=== PATIENT | female | born 1955 | race African-American/Black ===

== ENCOUNTER 2019-11-25 11:33 | Inpatient (IN) | payer OTHER ==
[~2019-11-25] VITALS: Ht 167.6 cm; Wt 86.2 kg
[~2019-11-25 11:33] MED LIST: AMBIEN PO; AMLODIPINE5 MG PO; ANTIVERT25 MG OR; B-121000 MC1 PO; BAYER ASA325 MG OR; BAYER LOW81 MG OR; CENTRUM ULTRA WOMENS PO; CIPRO500 MG OR; CIPRO500 MG PO; CRESTOR20 MG PO; HYDROCHLORO25 MG/TAB PO; HYDROCHLOROT12.5 MG OR; LIDOCAINE PATCH TD; MECLIZINE25 MG OR; METFORMIN500 M2 PO; NORVASC OR; OTC SLEEP AIDE PO; PLAVIX75 MG OR; PRAVACHOL40 MG PO; TENORMIN100 MG PO; TENORMIN50 MG OR; VANCOMYCIN HCL1 GM IV; VASOTEC5 MG PO; ZOCOR40 MG OR
[2019-11-25] MEDS ORDERED: AMBIEN5 MG PO (13:33)
[2019-11-25] MEDS ORDERED: ASPIRIN81 MG PO (13:35)
[2019-11-25] MEDS ORDERED: GABAPENTIN100 MG PO (13:36)
[2019-11-25] MEDS ORDERED: PROTONIX40 M2 PO (13:37)
[2019-11-25] MEDS ORDERED: SUPER B COM2 PO (13:38)
[2019-11-25] MEDS ORDERED: TIZANIDINE HCL2 MG PO (13:38)
[2019-11-25] MEDS ORDERED: IRON27 MG PO (13:38)
[2019-11-25] MEDS ORDERED: TYLENOL500 MG PO (13:40)
[2019-12-02] VITALS (7 sets, daily range): BP systolic 105–135; BP diastolic 46–59
--- NOTE | 2019-12-02 15:30 | NUR ---
PT ARRIVED TO UNIT VIA BED WITH OR STAFF; ALERT AND ORIENTED AND IN STABLE CONDITION. BEDSIDE REPORT RECEIVED. BP WNL BRADYCARDIC HR 47-50; SLIGHTLY DROWSY. C/O PAIN 4/10 TO RIGHT KNEE; SURGICAL DRESSING ELIGIO WRAP CDI; ELEVATED ON PILLOW AND ICE APPLIED. NORMAL SALINE INFUSING; IV SITE APPEARS HEALTHY. NEW BAG OF LR NOW INFUSING AT 100 ML/HR PER ORDER. RESPIRATIONS EVEN AND UNLABORED ON OXYGEN 2L VIA NC. ORIENTED TO ROOM AND CALL LIGHT SYSTEM. CALL LIGHT WITHIN REACH.
--- NOTE | 2019-12-02 16:14 | NUR ---
FAMILY MEMBER AT BEDSIDE. SCD TO LLE; IS AT BEDSIDE.
--- NOTE | 2019-12-02 16:21 | NUR ---
GODFREY,ANRP AT BEDSIDE DISCUSSING POC WITH PT
--- NOTE | 2019-12-02 20:52 | NUR ---
ASSESSMENT COMPLETED AND PT ASSISTED IN REPOSITIONING RLE FOR COMFORT AND PROPER KNEE P.OP POSITIONING. PT MEDICATED WITH IV ANTIBIOTIC THERAPY ORDERS PROVIDE. PT REPORTS PAIN LEVEL 1/10 ON PAIN SCALE AT THIS TIME. PT ENCOURAGED TO CALL IF PAIN STARTS TO INCREASE AND NOT TO WAIT TOO LONG, EDUCATED ON MAINTAINING PAIN CONTROL. PT VERBALIZED UNDERSTANDING. IS DEMONSTRATED BY PT AT THIS TIME @1500 PER BREATH. ELIGIO TO R.KNEE CDI. SCD PLACED TO LLE.
--- NOTE | 2019-12-02 22:30 | NUR ---
PT MEDICATED FOR PAIN AND WITH SLEEP AIDE PER REQUEST ORDERS PROVIDE. ASSISTED PT WITH FRESH ICE WATER, DENIES OTHER NEEDS. PT IS REPOSITIONING AND MOVING WELL IN THE BED AND ASKING ABOUT POSITIONS THAT ARE SAFE. PT EDUCATED ON MOVEMENT AND POSITIONS FOR THE KNEE. PT EDUCATED ON ICING ALSO, VERBALIZED UNDERSTANDING.
--- NOTE | 2019-12-03 02:15 | NUR ---
PT AWAKE, BUT WITH LIGHTS OUT. DENIES BEING ABLE TO SLEEP, DENIES ANY COMFORT MEASURES AT THIS TIME. DENIES NEED FOR PAIN MEDICATION NOW. REPORTS MILD TWINGES WHEN SHE MOVES, OTHER REINA COMFORTABLE. FAN PLACED FOR SOUND COMFORT FOR PT PRIOR BY PRINT TRAFFIC MANAGER TO ASSIST IN SLEEPING, PT EARLIER MEDICATED WITH SLEEP AIDE. PT STATES THAT HER "MIND IS WORRIED ABOUT THE STOOL SOFTENER YOU GAVE ME EALIER." I EXPLAINED TO HER THAT IT IS NOT A LAXATIVE AND WOULD NOT HAVE QUICK AFFECTS, IT IS ONLY MILD TO COUNTERACT PAIN MEDICATIONS AND SEDENTARY MOVEMENT, SHE VERBALIZED UNDERSTANDING. DENIES ANY OTHER NEEDS, BUT ENCOURAGED HER TO CALL IF NEEDS ARISE.
[2019-12-03 03:51] VITALS: BP 109/58
--- NOTE | 2019-12-03 05:59 | NUR ---
PT MEDICATED FOR PAIN 6/10 ON PAIN SCALE. PT WAS JUST ASSISTED UP TO BS BY OFFICE MANAGER RECEPTIONIST AND IS BACK IN BED NOW. PT TOLERATED WELL.
[2019-12-03 06:06] LABS: HEMATOCRIT 30.5 % (37.0-47.0); HEMOGLOBIN 9.5 g/dl (12.0-16.0); MEAN CORPUSCULAR HGB 26.5 pG CALC (26.0-32.0); MEAN CORPUSCULAR HGB CONC 31.1 g/dL CAL (32.0-36.0); RED BLOOD COUNT 3.59 mill/uL (4.20-5.60); RED CELL DISTRI WIDTH 14.6 % (11.5-15.5)
[2019-12-03 06:25] LABS: BUN 17 mg/dL (8-23); BUN/CREATININE RATIO 23 (12-20 (CALC)); CHLORIDE 105 mmol/l (95-108); CREATININE 0.7 mg/dL (0.5-1.0); GFR > 60 ML/MIN (>=60 (CALC)); GFR FOR AFR.AMER. > 60 ML/MIN (>=60 (CALC)); MAGNESIUM 1.8 mg/dL (1.6-2.3); POTASSIUM 4.7 mmol/l (3.5-5.1); SODIUM 134 mmol/l (137-146)
[2019-12-03 06:27] LABS: ANION GAP 12 (6-22 (CALC)); CARBON DIOXIDE 22 mmol/l (22-30)
[2019-12-03 07:33] VITALS: BP 108/51
--- NOTE | 2019-12-03 07:40 | NUR ---
PT note Patient attempted for eval on 12/01. Her BP was 80/40 and she is postop. We will defer eval to 12/03/19
--- NOTE | 2019-12-03 10:56 | NUR ---
PT AWAKE, ALERT, ORIENTED X 3. LUNGS CLEAR, RA. PT WITH RIGHT KNEE SURGERY YESTERDAY IS NOW OOB IN CHAIR WITH ASSIST FROM PHYSICAL THERAPIST. PT PROVIDED PAIN MED EARLIER, DOES NOT SEEM TO BE IN SIGNIFICANT DISTRESS. ELIGIO WRAP TO RIGHT KNEE WNL, MINIMAL SWELLING TO RLE.
--- NOTE | 2019-12-03 12:47 | NUR ---
PT OOB INTO CHAIR THIS AM WITH PHYSICAL THERAPIST. PT MEDICATED WITH ZOFRAN PER NAUSEATED. NO ACUTE DISTRESS NOTED.
--- NOTE | 2019-12-03 14:00 | NUR ---
PM TX- PT PERFORMED BED MOB AND TRANSFERS INDEPENDENTLY WITH SBA FROM THERAPIST TO ENSURE SAFETY. SHE THEN AMBULATED IN THE HALLWAY X 60 FT X 2 WITH RW, CGA AND VERBAL CUES FOR PROPER GAIT. PT DEMONSTRATED CORRECT GAIT PATTERN W/ EQUAL STEP LENGTHS. PT DID NOT REPORT ANY EXACERBATION OF PAIN DURING THE TX. NO ADVERSE RECTIONS NOTED OR REPORTED AT THE END OF TX. SHE RETURNED TO HER BED IN HOOK LYING POSITION, CALL PAGAN WITHIN REACH. AMPA: 16 POINTS
[2019-12-03 15:15] VITALS: BP 110/54
--- NOTE | 2019-12-03 17:56 | NUR ---
PT AMBULATED IN HALLWAY WITH PHYSICAL THERAPY, TOLERATED WELL.
[2019-12-03 19:00] VITALS: BP 116/50
--- NOTE | 2019-12-03 20:02 | NUR ---
ASSESSMENT AND VITALS COMPLETED AT THIS TIME. RESPIRATIONS ARE EVEN AND UNLABORED, NO SIGNS OF DISTRESS, O2 SAT 99% ON RA. HEART RHYTHM IS NORMAL BOWEL SOUNDS ARE ACTIVE IN ALL QUADRANTS, LAST REPORTED BM 12/01/19. RADIAL AND PEDAL PULSES ARE STRONG WITH NORMAL CAPILLARY REFILL. SKIN IS INTACT. PT IS USING THE BSC WITH 1 ASSIST. PT DENIES ANY PAIN OR ADDITIONAL NEEDS AT THIS TIME. ALL SAFETY PRECAUTIONS ARE IN PLACE WITH CALL LIGHT IN REACH. WILL CONTINUE TO MONITOR.
[2019-12-04 00:01] VITALS: BP 119/46
--- NOTE | 2019-12-04 00:02 | NUR ---
PT LAYING IN BED WITH EYES CLOSED, APPEARS TO BE SLEEPING, APPEARS COMFORTABLE AND IN NO DISTRESS. RESPIRATIONS REGULAR AND UNLABORED. ITEMS REMAIN WITHIN REACH, CALL PAGAN REMAINS WITHIN REACH. BED REMAINS LOCKED AND IN LOW POSITION WITH BEDRAILS UP X2. WILL CONTINUE TO MONITOR.
--- NOTE | 2019-12-04 04:02 | NUR ---
PT RESTING IN BED, NO SIGNS OF DISTRESS NOTED, RESP EVEN AND UNLABORED. PT VOICES NO NEEDS OR COMPLAINTS AT THIS TIME. CALL LIGHT IN REACH. WILL CONTINUE TO MONITOR.
[2019-12-04 04:40] VITALS: BP 113/44
--- NOTE | 2019-12-04 07:20 | NUR ---
REPORT RECEIVED FROM MICHAEL SUN. PT RESTING IN BED SUPINE WITH EYES CLOSED AND EYE COVER ON FOR SLEEP; AWAKENS TO VERBAL STIMULI. C/O 4/10 RIGHT KNEE PAIN. RESPIRATIONS EVEN AND UNLABORED ON ROOM AIR. IV SITE APPEARS HEALTHY AND FLUSEHS. ELIGIO WRAP DRESSING TO RIGHT KNEE REMOVED PER POST OP ORDERS; SURGICAL INCISION WELL APPROXIMATED; WARMTH AND SWELLING TO SITE; EXPLAINED TO PT NORMAL SIGNS OF HEALING. PLAN OF CARE REVIEWED. PT ENCOURAGED TO VERBALIZE CONCERNS. STATES UNDERSTANDING. SAFETY MEASURES IN PLACE. CALL LIGHT WITHIN REACH.
[2019-12-04 07:37] VITALS: BP 105/58
--- NOTE | 2019-12-04 09:00 | NUR ---
DR. MCINTOSH AT BEDSIDE. PT REQUESTING PAIN MEDICATION.
[2019-12-04 09:07] LABS: HEMATOCRIT 29.8 % (37.0-47.0); HEMOGLOBIN 9.1 g/dl (12.0-16.0)
--- NOTE | 2019-12-04 09:25 | NUR ---
AMBULATING TO BATHROOM WITH PHYSICAL THERAPY.
--- NOTE | 2019-12-04 10:04 | NUR ---
AM TX- PT WAS SEEN RESTING HOOK LYING IN THE BED. SHE ASSUMED SITTING FROM SUPINE WITH MOD. INDEP. PT REPORTS FEELING NAUSEATED AND REQUESTED TO GO TO THE TOILET. SHE STOOD UP USING BOTH HANDS TO PUSH SELF UP FROM BED, THERAPIST OFFERED MIN A WITH GAIT BELT. SHE THEN AMBULATED FROM BED TO TOILET WITH RW AND CGA. PT WAS REMINDED ON PROPER GAIT USING A WALKER. PT RETURNED TO BED AFTERWARDS, REQUESTED TO DO GAIT TRAINING IN THE HALLWAY THIS AFTERNOON SHE WAS NOT FEELING WELL. LEFT PT COMFORTABLY LYING IN BED WITH CALL PAGAN WITHIN REACH. AMPAC: 15 POINTS
--- NOTE | 2019-12-04 10:09 | NUR ---
2 PERCOCET GIVEN WITH AM MEDS AFTER THERAPY WITH GOOD EFFECT.
--- NOTE | 2019-12-04 13:41 | NUR ---
ZOFRAN AND GINGERALE GIVEN FOR NAUSEA. 1 PERCOCET ALSO GIVEN FOR 5/10 RIGHT KNEE PAIN. SINGH AT BEDSIDE.
[2019-12-04 15:00] VITALS: BP 98/54
--- NOTE | 2019-12-04 15:20 | NUR ---
MIRALAX GIVEN FOR NO BOWEL MOVEMENT X 3 DAYS. PT AMBULATING IN HALLWAYS WITH WALKER AND PHYSICAL THERAPY.
--- NOTE | 2019-12-04 17:17 | NUR ---
PM TX- PT AMBULATED IN THE HALLWAY WITH RW AND SBA X 80 FT X 2 WITH GOOD GAIT PATTERN AND BETTER PACING. AFTERWARDS, PT PERFORMED THEREX INCLUDING SITTING HEEL PUMPS, HEEL SLIDES AND QUAD/GLUTEAL SETTINGS. AMPAC: 16 POINTS
[2019-12-04 19:00] VITALS: BP 132/48
--- NOTE | 2019-12-04 19:58 | NUR ---
PT RESTING IN BED, C/O PAIN 08/29 PT MEDICATED PER APR. DISCUSSED POC, PT ALERT AND ORIENTED X3, RESP EVEN AND UNLABORED. R KNEE INCISION DAMARIS WITH DERMABOND, NO SIGNS OF SYMPTOMS OF INFECTION. ASSESSMENT COMPLETED, CALL LIGHT IN REACH,CONTINUE TO MONITOR.
--- NOTE | 2019-12-04 22:39 | NUR ---
PT RESTING IN BED, PT MEDICATED PER MAR, NO SIGNS OF DISTRESS NOTED, RESP EVEN AND UNLABORED. CALL LIGHT IN REACH,CONTINUE TO MONITOR.
[2019-12-05 04:00] VITALS: BP 116/41
--- NOTE | 2019-12-05 04:03 | NUR ---
PT RESTING IN BED, VITALS OBTAINED, PT VOICES NO NEEDS OR COMPLAINTS AT THIS TIME, CALL LIGHT IN REACH,CONTINUE TO MONITOR.
[2019-12-05 05:38] LABS: HEMOGLOBIN 9.5 g/dl (12.0-16.0); MEAN CELL VOLUME 85.6 fL CALC (80.0-100.0); MEAN CORPUSCULAR HGB 26.2 pG CALC (26.0-32.0); MEAN CORPUSCULAR HGB CONC 30.6 g/dL CAL (32.0-36.0); RED BLOOD COUNT 3.62 mill/uL (4.20-5.60); RED CELL DISTRI WIDTH 14.9 % (11.5-15.5)
[2019-12-05 05:57] LABS: ANION GAP 14 (6-22 (CALC)); BUN 15 mg/dL (8-23); BUN/CREATININE RATIO 17 (12-20 (CALC)); CARBON DIOXIDE 22 mmol/l (22-30); CHLORIDE 99 mmol/l (95-108); CREATININE 0.9 mg/dL (0.5-1.0); GFR > 60 ML/MIN (>=60 (CALC)); GFR FOR AFR.AMER. > 60 ML/MIN (>=60 (CALC)); POTASSIUM 4.1 mmol/l (3.5-5.1); SODIUM 131 mmol/l (137-146)
[2019-12-05 07:34] VITALS: BP 117/50
--- NOTE | 2019-12-05 07:34 | NUR ---
RECIEVED REPORT FROM BROWN HOOK. PT RESTING IN SEMI FOWLERS POSITION UPON ENTERING ROOM. INTRODUCED SELF TO PT AND DISCUSSED POC. PT IS A/OX3 AND POST OP DAY 3 OF RIGHT KNEE ARTHROPASTY. ASSESSMENT AND VITALS COMPLETED AT THIS TIME. BP 117/50, HR 73, O2 94% ON ROOM AIR. RESPIRATIONS ARE EVEN AND UNLABORED WITH NO SIGNS OF DISTRESS NOTED. LUNG SOUNDS JEREMY CLEAR. KINNEY RHYTHM IS NORMAL. BOWEL SOUNDS ARE ACTIVE IN ALL QUADRANTS, LAST REPORTED BM 12/01/2019. MOM AND STOOL SOFTENER TO BE ADMINISTERED TO ASSIST WITH BM. RADIAL AND PEDAL PULSES ARE STRONG WITH NORMAL CAPILLARY. #20G IN RFA FLUSHED, SITE APPEARS HEALTHY AND PATENT. PT COMPLAINS OF 2/10 PAIN IN RIGHT KNEE, PT TO BE MEDICATED PER EMAR. DERMABOND ON RIGHT KNEE IS CDI AT THIS TIME. I.S AT BEDSIDE. PT EDUCATED ON USE. PT DENIES ANY OTHER NEEDS AT THIS TIME. ALL SAFTEY PRECAUTIONS ARE IN PLACE WITH CALL LIGHT IN REACH. WILL CONTINUE TO MONITOR.
--- NOTE | 2019-12-05 09:10 | NUR ---
DR MCINTOSH AND GODFREY,ANRP AT BEDSIDE DISCUSSING POC
[2019-12-05 09:37] VITALS: BP 117/50
--- NOTE | 2019-12-05 10:15 | NUR ---
PT AT BEDSIDE WORKING WITH PT
--- NOTE | 2019-12-05 12:27 | NUR ---
PT IN BATHROOM UPON ENTERING ROOM.PT IS A/O X3. RESPIRATIONS ARE EVEN AND UNLABROED. ENCOURAGED PT TO CALL FOR HELP IF NEEDED. PT VERBALIZED UNDERSTANDING. ALL SAFTEY PRECAUTIONS ARE IN PLACE WITH CALL LIGHT IN REACH. WILL CONTINUE TO MONITOR
--- NOTE | 2019-12-05 12:40 | NUR ---
AM TX- PT DEMONSTRATED SIGNIFICANT IMPROVEMENT ON BED MOBILITY, TRANSFERS AND AMBULATION. SHE ALSO REPORTS FEELING MORE STABLE AND AT EASE AMBULATING WITH RW. SHE AMBULATED ~80 FT X 2 WITH RW AND SBA WITH CORRECT GAIT PATTERN. SHE REQUESTED TO BE LEFT AT THE TOILET TO DEFECATE. PT WAS INSTRUCTED TO PULL THE RED STRING IN THE BATHROOM ONCE SHE IS DONE. [facility] [address]: 16 POINTS
--- NOTE | 2019-12-05 13:31 | NUR ---
PT EDUCATED ON DISCHARGE INSTRUCTIONS AND PERCOCET. PT VERBAILZED UNDERSTANDING. IV REMOVED WITH CATHATER STILL INTACT. PT TOELRATED WELL. AWAITING FOR TRANSPORTATION AT THIS TIME. ALL SAFTEY PRECAUTIONS ARE IN PLACE WIHT CXALL LIGHT IN REACH. WILL CONTINUE TO MONITOR
--- NOTE | 2019-12-05 14:44 | NUR ---
Discharge instructions given. Patient verbalizes understanding of same. Discharged in stable condition via Wheelchair to Home with family. All belongings sent with pt. PT DISCHARGE VIA WHEELCHAIR IN STABLE CONDITION ACCOMPAINED BY SÁNCHEZ MARTIN AND . PT DISCHARGE WITH [facility] AND PT. PT LEFT WITH [facility] DISCHARGE PAPERWORK, BELONGINGS AND PRESCRIPTIONS.
== END 2019-12-05 14:47 | disposition home health service (06) | DRG 470 ==
LOC: MS2 12-02 08:21 → OR 12-02 10:00 → MS2 12-05 14:47
PROVIDERS: Nurse Practitioner; ADMIT Internal Medicine; ATTEND Orthopaedic Surgery
PROC: 0SRC0J9 Replacement of Right Knee Joint with Synthetic Substitute, Cemented, Open Approach (ICD-10-PCS; principal; 2019-12-02)
PROC: 3E0T3BZ Introduction of Anesthetic Agent into Peripheral Nerves and Plexi, Percutaneous Approach (ICD-10-PCS; 2019-12-02)
DX: M17.11 Unilateral primary osteoarthritis, right knee (principal); E11.9 Type 2 diabetes mellitus without complications; I10 Essential (primary) hypertension; E78.5 Hyperlipidemia, unspecified; I25.10 Atherosclerotic heart disease of native coronary artery without angina pectoris; I65.29 Occlusion and stenosis of unspecified carotid artery; K59.00 Constipation, unspecified; Z87.891 Personal history of nicotine dependence; Z20.828 Contact with and (suspected) exposure to other viral communicable diseases
CPT/HCPCS: J0131; J1100

== ENCOUNTER 2019-12-09 15:58 | Emergency (ER) | payer OTHER ==
[~2019-12-09] VITALS: Ht 167.6 cm; Wt 90.0 kg
[~2019-12-09 15:58] MED LIST changes: +AMBIEN5 MG PO; +ASPIRIN81 MG PO; +GABAPENTIN100 MG PO; +IRON27 MG PO; +PROTONIX40 M2 PO; +SUPER B COM2 PO; +TIZANIDINE HCL2 MG PO; +TYLENOL500 MG PO
[2019-12-09 16:51] LABS: HEMATOCRIT 31.3 % (37.0-47.0); HEMOGLOBIN 10.1 g/dl (12.0-16.0); RED BLOOD COUNT 3.72 mill/uL (4.20-5.60)
[2019-12-09 16:52] LABS: BASO% 0 % (0-3); EOS% 0 % (0-8); LYMPH% 16 % (15-41); MEAN CELL VOLUME 84.1 fL CALC (80.0-100.0); MEAN CORPUSCULAR HGB 27.2 pG CALC (26.0-32.0); MEAN CORPUSCULAR HGB CONC 32.3 g/dL CAL (32.0-36.0); MONO% 10 % (2-13); NEUT% 74 % (42-76); PLATELET COUNT 320 thou/uL (130-400); RED CELL DISTRI WIDTH 14.1 % (11.5-15.5)
[2019-12-09 17:06] LABS: ALBUMIN 3.9 g/dL (3.2-5.0); ALKALINE PHOSPHATASE 83 u/l (38-126); BUN 14 mg/dL (8-23); BUN/CREATININE RATIO 17 (12-20 (CALC)); CHLORIDE 95 mmol/l (95-108); CREATININE 0.8 mg/dL (0.5-1.0); GFR > 60 ML/MIN (>=60 (CALC)); GFR FOR AFR.AMER. > 60 ML/MIN (>=60 (CALC)); LIPASE 64 u/l (23-300); POTASSIUM 3.6 mmol/l (3.5-5.1); SODIUM 133 mmol/l (137-146); TOTAL PROTEIN 7.9 g/dL (6.3-8.2)
[2019-12-09 17:08] LABS: ANION GAP 10 (6-22 (CALC)); BILIRUBIN, TOTAL 0.6 mg/dL (0.0-1.4); CARBON DIOXIDE 32 mmol/l (22-30); SGOT/AST 41 u/l (9-36)
[2019-12-09 18:36] LABS: URINE BILIRUBIN - DIPSTICK NEGATIVE (NEGATIVE); URINE BLOOD DIPSTICK NEGATIVE (NEGATIVE); URINE COLOR YELLOW; URINE GLUCOSE - DIPSTICK NEGATIVE (NEGATIVE); URINE KETONE NEGATIVE (NEGATIVE); URINE LEUK ESTERASE NEGATIVE (NEGATIVE); URINE NITRITE - DIPSTICK NEGATIVE (Negative); URINE PROTEIN - DIPSTICK NEGATIVE (NEG-TRACE); URINE UROBILINOGEN - DIPSTICK 0.2 E.U./dL (0.2)
[2019-12-09] MEDS ORDERED: ZOFRAN4 M1 PO (18:50)
[2019-12-09 19:17] VITALS: BP 107/87
== END 2019-12-09 19:19 | disposition home or self-care (01) | DRG 948 ==
LOC: ED 15:58
PROVIDERS: Family Medicine
DX: R53.83 Other fatigue (principal); K59.00 Constipation, unspecified; I10 Essential (primary) hypertension; E11.9 Type 2 diabetes mellitus without complications; E78.5 Hyperlipidemia, unspecified; Z79.84 Long term (current) use of oral hypoglycemic drugs; Z98.890 Other specified postprocedural states

== ENCOUNTER 2020-02-15 19:13 | Emergency (ER) | payer OTHER ==
[~2020-02-15] VITALS: Ht 61 cm; Wt 82.0 kg
[~2020-02-15 19:13] MED LIST changes: +ZOFRAN4 M1 PO
[2020-02-15 19:53] LABS: HEMATOCRIT 34.1 % (37.0-47.0); HEMOGLOBIN 10.3 g/dl (12.0-16.0); IMMATURE GRANULOCYTES 0.1 % (0.0-5.0); MEAN CELL VOLUME 84.8 fL CALC (80.0-100.0); MEAN CORPUSCULAR HGB 25.6 pG CALC (26.0-32.0); MEAN CORPUSCULAR HGB CONC 30.2 g/dL CAL (32.0-36.0); NEUT# 1.9 thou/uL (2.00-7.15); RED BLOOD COUNT 4.02 mill/uL (4.20-5.60); RED CELL DISTRI WIDTH 16.1 % (11.5-15.5)
[2020-02-15 20:07] LABS: ALKALINE PHOSPHATASE 71 u/l (38-126); BUN 15 mg/dL (8-23); BUN/CREATININE RATIO 19 (12-20 (CALC)); CARBON DIOXIDE 31 mmol/l (22-30); CHLORIDE 102 mmol/l (95-108); CREATININE 0.8 mg/dL (0.5-1.0); GFR > 60 ML/MIN (>=60 (CALC)); GFR FOR AFR.AMER. > 60 ML/MIN (>=60 (CALC)); POTASSIUM 4.3 mmol/l (3.5-5.1); SGOT/AST 17 u/l (9-36); TOTAL PROTEIN 8.5 g/dL (6.3-8.2)
[2020-02-15 20:12] LABS: ALBUMIN 4.8 g/dL (3.2-5.0); ANION GAP 12 (6-22 (CALC)); BILIRUBIN, TOTAL 0.2 mg/dL (0.0-1.4); SODIUM 141 mmol/l (137-146)
[2020-02-15 22:45] VITALS: BP 158/72
== END 2020-02-15 23:10 | disposition short-term general hospital (02) | DRG 916 ==
LOC: ED 19:13
PROVIDERS: Emergency Medicine
PROC: 0BH18EZ Insertion of Endotracheal Airway into Trachea, Via Natural or Artificial Opening Endoscopic (ICD-10-PCS; principal; 2020-02-15)
PROC: 0T9B70Z Drainage of Bladder with Drainage Device, Via Natural or Artificial Opening (ICD-10-PCS; 2020-02-15)
DX: T78.3XXA Angioneurotic edema, initial encounter (principal); I10 Essential (primary) hypertension; E11.9 Type 2 diabetes mellitus without complications; E78.5 Hyperlipidemia, unspecified; Z79.84 Long term (current) use of oral hypoglycemic drugs; Z20.828 Contact with and (suspected) exposure to other viral communicable diseases

== ENCOUNTER 2020-12-03 07:43 | Day surgery (SDC) | payer OTHER ==
[~2020-12-03] VITALS: Ht 168.9 cm; Wt 90.3 kg
[~2020-12-03 07:43] MED LIST changes: +AMITRIPTYLINE H25 MG PO; +APAP325 MG PO; +CVS MELATONIN10 MG PO; +HYDROCODONE/IBU1 TA3; +PAIN/FEVER120 MG RE; +TIZANIDINE2 MG PO; +TRAZODONE50 MG PO; +[UNRECOGNIZED DRUG - OTHER] PO
[2020-12-03] MEDS ORDERED: PERCOCET 5/325M1 TAB PO (10:28)
[2020-12-03 11:43] VITALS: BP 146/67
[2020-12-04] MEDS ORDERED: LORTAB 5/3255 MG PO (10:58)
== END 2020-12-03 12:10 | disposition home or self-care (01) | DRG 419 ==
LOC: ORM 07:43
PROVIDERS: ATTEND Surgery
PROC: 0FT44ZZ Resection of Gallbladder, Percutaneous Endoscopic Approach (ICD-10-PCS; principal; 2020-12-03)
DX: K81.1 Chronic cholecystitis (principal); I10 Essential (primary) hypertension; E11.9 Type 2 diabetes mellitus without complications; I25.10 Atherosclerotic heart disease of native coronary artery without angina pectoris; E78.5 Hyperlipidemia, unspecified; Z79.84 Long term (current) use of oral hypoglycemic drugs
CPT/HCPCS: J0131; J2710

== ENCOUNTER 2021-06-29 10:47 | Observation (INO) | payer OTHER ==
[~2021-06-29] VITALS: Ht 167.6 cm; Wt 83.0 kg
[2021-06-29] VITALS (14 sets, daily range): BP systolic 116–157; BP diastolic 57–83
[~2021-06-29 10:47] MED LIST changes: +LORTAB 5/3255 MG PO; +PERCOCET 5/325M1 TAB PO
[2021-06-29 11:24] LABS: HEMATOCRIT 42.9 % (37.0-47.0); HEMOGLOBIN 13.6 g/dl (12.0-16.0); IMMATURE GRANULOCYTES 0.2 % (0.0-5.0); MEAN CELL VOLUME 83.3 fL CALC (80.0-100.0); MEAN CORPUSCULAR HGB 26.4 pG CALC (26.0-32.0); MEAN CORPUSCULAR HGB CONC 31.7 g/dL CAL (32.0-36.0); NEUT# 3.37 thou/uL (2.00-7.15); RED BLOOD COUNT 5.15 mill/uL (4.20-5.60)
[2021-06-29 11:27] LABS: GFR > 60 ML/MIN (>=60 (CALC)); GFR FOR AFR.AMER. > 60 ML/MIN (>=60 (CALC))
[2021-06-29 11:42] LABS: ALBUMIN 4.3 g/dL (3.2-5.0); ALKALINE PHOSPHATASE 69 u/l (38-126); BUN 18 mg/dL (8-23); BUN/CREATININE RATIO 24 (12-20 (CALC)); CHLORIDE 100 mmol/l (95-108); CREATININE 0.8 mg/dL (0.5-1.0); GFR > 60 ML/MIN (>=60 (CALC)); GFR FOR AFR.AMER. > 60 ML/MIN (>=60 (CALC)); SGOT/AST 26 u/l (9-36); SODIUM 134 mmol/l (137-146)
[2021-06-29 11:55] LABS: ANION GAP 14 (6-22 (CALC)); BILIRUBIN, TOTAL 0.3 mg/dL (0.0-1.4); CARBON DIOXIDE 23 mmol/l (22-30); POTASSIUM 3.4 mmol/l (3.5-5.1)
[2021-06-30] VITALS (7 sets, daily range): BP systolic 115–140; BP diastolic 61–76
[2021-06-30 05:54] LABS: HEMATOCRIT 38.1 % (37.0-47.0); HEMOGLOBIN 11.8 g/dl (12.0-16.0); MEAN CELL VOLUME 84.7 fL CALC (80.0-100.0); MEAN CORPUSCULAR HGB 26.2 pG CALC (26.0-32.0); RED BLOOD COUNT 4.5 mill/uL (4.20-5.60); RED CELL DISTRI WIDTH 14.3 % (11.5-15.5)
[2021-06-30 06:09] LABS: ANION GAP 11 (6-22 (CALC)); BUN 14 mg/dL (8-23); BUN/CREATININE RATIO 20 (12-20 (CALC)); CALCULATED LDLCHOLESTEROL 80 mg/dL (62-129 (CALC)); CARBON DIOXIDE 26 mmol/l (22-30); CHLORIDE 107 mmol/l (95-108); CHOLESTEROL HDL RATIO 3.5 (<4.4 (CALC)); CREATININE 0.7 mg/dL (0.5-1.0); GFR > 60 ML/MIN (>=60 (CALC)); GFR FOR AFR.AMER. > 60 ML/MIN (>=60 (CALC)); HDL CHOLESTEROL 42 mg/dL (>=40); MAGNESIUM 2.2 mg/dL (1.6-2.3); SODIUM 139 mmol/l (137-146); TOTAL CHOLESTEROL 146 mg/dl (0-199); TOTAL TRIGLYCERIDES 118 mg/dl (30-149); VLDL CHOLESTROL 24 mg/dl (1-41 (CALC))
[2021-06-30 06:12] LABS: POTASSIUM 4.6 mmol/l (3.5-5.1)
[2021-06-30] MEDS ORDERED: XARELTO20 MG PO (13:05)
== END 2021-06-30 14:12 | disposition home or self-care (01) | DRG 308 ==
LOC: ED 10:47 → ED-I 13:02 → MS2 13:15 → ED 13:15 → MS2 06-30 14:12
PROVIDERS: Family Medicine; ADMIT Hospitalist; ATTEND Hospitalist
DX: I48.91 Unspecified atrial fibrillation (principal); U07.1 COVID-19; R53.83 Other fatigue; I10 Essential (primary) hypertension; E11.9 Type 2 diabetes mellitus without complications; E78.5 Hyperlipidemia, unspecified; I25.10 Atherosclerotic heart disease of native coronary artery without angina pectoris; I65.29 Occlusion and stenosis of unspecified carotid artery
CPT/HCPCS: G0378; J1650

== ENCOUNTER 2022-11-25 13:25 | Emergency (ER) | payer MEDICARE ==
[2022-11-25] VITALS (10 sets, daily range): BP systolic 126–196; BP diastolic 56–73
[~2022-11-25] VITALS: Ht 167.6 cm; Wt 88.6 kg
[~2022-11-25 13:25] MED LIST changes: +XARELTO20 MG PO
[2022-11-25 14:42] LABS: BASO% 0.8 % (0-3); EOS% 4.9 % (0-8); HEMATOCRIT 37.4 % (37.0-47.0); HEMOGLOBIN 11.6 g/dl (12.0-16.0); IMMATURE GRANULOCYTES 0.2 % (0.0-5.0); LYMPH% 44.2 % (15-41); MEAN CELL VOLUME 88.2 fL CALC (80.0-100.0); MEAN CORPUSCULAR HGB 27.4 pG CALC (26.0-32.0); MONO% 8.4 % (2-13); NEUT# 2.12 thou/uL (2.00-7.15); NEUT% 41.5 % (42-76); RED BLOOD COUNT 4.24 mill/uL (4.20-5.60); RED CELL DISTRI WIDTH 14.3 % (11.5-15.5)
[2022-11-25] MEDS ORDERED: CYMBALTA30 MG PO (14:58)
[2022-11-25] MEDS ORDERED: ALDACTONE50 MG PO (14:58)
[2022-11-25 14:59] LABS: ALBUMIN 4.5 g/dL (3.2-5.0); ALKALINE PHOSPHATASE 75 u/l (38-126); ANION GAP 13 (6-22 (CALC)); BILIRUBIN, TOTAL 0.4 mg/dL (0.02-1.3); BUN 13 mg/dL (8-23); BUN/CREATININE RATIO 14 (12-20 (CALC)); CARBON DIOXIDE 25 mmol/l (22-30); CHLORIDE 105 mmol/l (95-108); CREATININE 0.9 mg/dL (0.5-1.0); GFR FOR AFR.AMER. > 60 ML/MIN (>=60 (CALC)); GFR OTHER RACES > 60 ML/MIN (>=60 (CALC)); POTASSIUM 4.1 mmol/l (3.5-5.1); SGOT/AST 31 u/l (9-36); SODIUM 139 mmol/l (137-146); TOTAL PROTEIN 8.3 g/dL (6.3-8.2)
[2022-11-25] MEDS ORDERED: JANTOVEN5 MG PO (14:59)
[2022-11-25 15:30] LABS: TSH, 3RD GENERATION 1.09 uIU/mL (0.47 - 4.68)
[2022-11-25 16:49] LABS: INTERNATIONAL NORMALIZED RATIO 2.2 RATIO (0.7-1.3); PROTHROMBIN TIME 20.1 SECONDS (9.0-12.5)
== END 2022-11-25 17:31 | disposition home or self-care (01) ==
LOC: ED 13:25
PROVIDERS: Family Medicine
DX: R00.1 Bradycardia, unspecified (principal); I10 Essential (primary) hypertension; E11.9 Type 2 diabetes mellitus without complications; E78.5 Hyperlipidemia, unspecified; Z79.84 Long term (current) use of oral hypoglycemic drugs; Z20.822 Contact with and (suspected) exposure to COVID-19